=== PATIENT | male | born 1975 | race Caucasian/White ===

== ENCOUNTER → 2022-09-10 | Outpatient (CLI) | payer OTHER ==
[~2022-09-10] MED LIST: IOPAMIDOL 370 MG/ML 100 ML INFUS..BTL INJ ONE
== END ==
LOC: NM 08:55
PROVIDERS: ATTEND Urology
DX: C61 Malignant neoplasm of prostate (principal)
CPT/HCPCS: 71046; 74177; 78306; A9503; Q9967